=== PATIENT | male | born 1960 | race Caucasian/White ===

== ENCOUNTER 2018-01-01 23:34 | Inpatient (IN) | payer MEDICAID ==
[~2018-01-01] VITALS: Ht 182.9 cm; Wt 100.0 kg
[2018-01-01 23:46] VITALS: BP 178/77; PULSE 83; RESP 14; TEMP 98.1; O2SAT 92
[2018-01-02] VITALS (9 sets, daily range): BP systolic 144–195; BP diastolic 68–86; PULSE 75–97; RESP 16–18; TEMP 97.7–98.6; O2SAT 94–99
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
[2018-01-02] MEDS ORDERED: NALOXONE HCL 0.4 MG/ML AMP IV PUSH ONE ×2 (00:30→03:30)
[2018-01-02 01:02] LABS: AUTOMATED NEUTROPHIL # 7.5 TH/MM3 (1.8-7.7); BASOPHIL # 0.1 TH/MM3 (0-0.2); BASOPHIL % 0.5 % (0.0-2.0); EOSINOPHIL # 0.5 TH/MM3 (0-0.4); EOSINOPHIL % 4.3 % (0.0-4.0); HEMATOCRIT 31.1 % (39.0-51.0); HEMOGLOBIN 10.1 GM/DL (13.0-17.0); LYMPH % 16.4 % (9.0-44.0); LYMPHOCYTE # 1.7 TH/MM3 (1.0-4.8); MEAN CELL VOLUME 81.1 FL (80.0-100.0); MEAN CORPUSCULAR HEMOGLOBIN 26.4 PG (27.0-34.0); MEAN CORPUSCULAR HGB CONC 32.5 % (32.0-36.0); MEAN PLATELET VOLUME 7.5 FL (7.0-11.0); MONO % 8.1 % (0.0-8.0); MONOCYTE # 0.9 TH/MM3 (0-0.9); NEUT % 70.7 % (16.0-70.0); PLATELET COUNT 460 TH/MM3 (150-450); RED BLOOD COUNT 3.83 MIL/MM3 (4.50-5.90); RED CELL DISTRIBUTION WIDTH 16.7 % (11.6-17.2); WHITE BLOOD COUNT 10.6 TH/MM3 (4.0-11.0)
--- NOTE | 2018-01-02 01:03 | RADRPT ---
EXAM DATE/TIME: 01/02/2018 00:28 [facility] COMPARISON: No previous studies available for comparison. INDICATIONS : Short of breath MEDICAL HISTORY : Diabetes mellitus type II. Hypertension SURGICAL HISTORY : None. ENCOUNTER: Initial ACUITY: 1 day PAIN SCORE: 0/10 LOCATION: Bilateral chest FINDINGS: Single AP view of the chest. The lungs are clear. Cardiomediastinal silhouette within normal limits. No evidence of pleural effusion or pneumothorax. CONCLUSION: No acute cardiopulmonary disease identified. Luis Armando Esquivel MD on January 02, 2018 at 0:59 Board Certified Radiologist. This report was verified electronically.
[2018-01-02 01:12] LABS: ALBUMIN 2.7 GM/DL (3.4-5.0); AST (GOT) 20 U/L (15-37); BICARBONATE 26.4 MEQ/L (21.0-32.0); BLOOD UREA NITROGEN 20 MG/DL (7-18); CALCIUM 9.3 MG/DL (8.5-10.1); CHLORIDE 105 MEQ/L (98-107); CREATININE 1.13 MG/DL (0.60-1.30); GLOMERULAR FILTRATION RATE 66 ML/MIN (>89); GLUCOSE,RANDOM 99 MG/DL (74-106); SODIUM (NA) 138 MEQ/L (136-145)
[2018-01-02 01:22] LABS: ALKALINE PHOSPHATASE 105 U/L (45-117); ALT (GPT) 17 U/L (12-78); TOTAL BILIRUBIN ADULT 0.2 MG/DL (0.2-1.0); TOTAL PROTEIN 8.7 GM/DL (6.4-8.2)
[2018-01-02 01:33] LABS: INTERNATIONAL NORMALIZED RATIO 1.3 RATIO; PROTHROMBIN TIME - PATIENT 13.1 SEC (9.8-11.6)
[2018-01-02 01:59] LABS: BACTERIA, URINE RARE /hpf; BILIRUBIN, URINE NEG (NEG); BLOOD, URINE MOD (NEG); GLUCOSE,URINE NEG (NEG); KETONE, URINE NEG (NEG); NITRITE,URINE NEG (NEG); PH, URINE 5.5 (5.0-8.5); URINE COLOR YELLOW (YELLW/STRAW); URINE LEUKOCYTE ESTERASE NEG (NEG)
--- NOTE | 2018-01-02 02:05 | RADRPT ---
EXAM DATE/TIME: 01/02/2018 01:38 [facility] COMPARISON: No previous studies available for comparison. INDICATIONS : Altered mental status. RADIATION DOSE: 54.90 CTDIvol (mGy) MEDICAL HISTORY : None SURGICAL HISTORY : Neck surgery. ENCOUNTER: Initial ACUITY: 1 day PAIN SCALE: 0/10 LOCATION: cranial TECHNIQUE: Multiple contiguous axial images were obtained of the head. Using automated exposure control and adj ustment of the mA and/or kV according to patient size, radiation dose was kept as low as reasonably a chievable to obtain optimal diagnostic quality images. DICOM format image data is available electro nically for review and comparison. FINDINGS: CEREBRUM: Linear artifact in the left upper parietal region. The ventricles are normal for age. No evidence of midline shift, mass lesion, hemorrhage or acute infarction. No extra-axial fluid collections are se en. POSTERIOR FOSSA: The cerebellum and brainstem are intact. The 4th ventricle is midline. The cerebellopontine angle i s unremarkable. EXTRACRANIAL: The visualized portion of the orbits is intact. SKULL: The calvaria is intact. No evidence of skull fracture. CONCLUSION: No acute intracranial findings. Luis Armando Esquivel MD on January 02, 2018 at 2:01 Board Certified Radiologist. This report was verified electronically.
[2018-01-02] MEDS ORDERED: IOHEXOL 350 MG/ML 10 ML VIAL (for RAD DIAG) IVCONTRAST ONE (02:13)
--- NOTE | 2018-01-02 02:41 | RADRPT ---
EXAM DATE/TIME: 01/02/2018 01:43 This report includes an Addendum and supersedes previous reports for this exam. [facility] COMPARISON: No previous studies available for comparison. INDICATIONS : Neck pain. Drainage from surgical site. IV CONTRAST: 50 cc Omnipaque 350 (iohexol) IV RADIATION DOSE: 33.08 CTDIvol (mGy) MEDICAL HISTORY : None SURGICAL HISTORY : Fusion, cervical. ENCOUNTER: Initial ACUITY: 1 day PAIN SCALE: Non-responsive LOCATION: neck TECHNIQUE: Volumetric scanning of the cervical spine was performed. Multiplanar reconstructions in the sagittal , coronal and oblique axial planes were performed. Using automated exposure control and adjustment o f the mA and/or kV according to patient size, radiation dose was kept as low as reasonably achievable to obtain optimal diagnostic quality images. DICOM format image data is available electronically fo r review and comparison. FINDINGS: VERTEBRA: Anterior fusion hardware at C4-5 and C5-6 with evidence of bone bridging between the vertebral bodies at these levels. Posterior laminectomy defects are seen at C4, C5, C6, and C7. Posterior longitudina l rods are seen bilaterally there is evidence of migration posterior migration of the superior aspect of the left-sided gus. The C3, C4, C5, and C6 left-sided posterior screws are not seated in the bone . The screws are posterior to the bone with maximum posterior migration seen at the C3 level measurin g 2 cm. Residual bone lucency and erosion is seen in the posterior elements of C3, C4, C5, and C6 on the left. On the right there is circumferential lucency at the posterior C3 screw measuring up to 4 m m in thickness, indicating loosening. On the right, screws are seen within the C3, C4, C5, and C6 pos terior elements. On the right there is abnormal bone lucency about the pedicle screws at T2 and T3 wi th posterior migration of the screws measuring up to 1.8 cm. On the left there is lucency measuring u p to 2 mm in thickness circumferentially about the T3 pedicle screw. The T1 and T2 pedicle screws on the left remain seated. No evidence of acute fracture ALIGNMENT: No evidence of subluxation. C2-C3: Bilateral facet arthrosis. Central canal diameter within normal limits. Neural foraminal diameter is within normal limits. C3-C4: Postsurgical findings of posterior laminectomy defect. Mild bilateral neural foraminal narrowing. Caleb ateral facet arthrosis. C4-C5: Posterior laminectomy defect. Central canal grossly within normal limits in diameter. Bilateral facet arthrosis. C5-C6: Posterior laminectomy defect. Central canal grossly within normal limits in diameter. Neural frontal diameters within normal image. C6-C7: Posterior laminectomy defect. Central canal diameter grossly within normal limits. Neural foraminal d iameters within normal limits. C7-T1: Posterior laminectomy defect. Central canal diameter grossly within normal limits. Neural foraminal d iameters within normal limits. CONCLUSION: 1. Extensive postsurgical findings of the cervical spine. Anterior and posterior hardware along with laminectomy defects at multiple levels. 2. Evidence of bone fusion at C4-5 and C5-6. 3. Severe loosening and migration of the posterior surgical hardware bilaterally. 4. Defined fluid collections are not seen evaluation of the soft tissues is somewhat limited on nonco ntrast CT. Luis Armando Esquivel MD on January 02, 2018 at 2:27 Board Certified Radiologist. This report was verified electronically. ADDENDUM: Examination was performed with contrast. No defined peripherally enhancing fluid collections. Posteri or soft tissue edema is seen at the surgical levels. Prevertebral soft tissue edema noted at T2, T3, and T4. Luis Armando Esquivel MD on January 02, 2018 at 2:42 Board Certified Radiologist. This report was verified electronically.
--- NOTE | 2018-01-02 02:52 | RADRPT ---
EXAM DATE/TIME: 01/02/2018 01:48 [facility] COMPARISON: CT CERVICAL SPINE W CONTRAST, January 02, 2018, 1:43. INDICATIONS : Back pain. Possible abscess. IV CONTRAST: 50 cc Omnipaque 350 (iohexol) IV RADIATION DOSE: 35.86 CTDIvol (mGy) MEDICAL HISTORY : None SURGICAL HISTORY : Fusion, cervical. ENCOUNTER: Initial ACUITY: 1 day PAIN SCALE: Non-responsive LOCATION: Parasp[facility] TECHNIQUE: Volumetric scanning of the thoracic spine was performed. Multiplanar reconstructions in the sagittal , coronal and oblique axial planes were performed. Using automated exposure control and adjustment o f the mA and/or kV according to patient size, radiation dose was kept as low as reasonably achievable to obtain optimal diagnostic quality images. DICOM format image data is available electronically fo r review and comparison. FINDINGS: Postsurgical findings of the lower cervical and upper thoracic spine. Surgical hardware is fully desc ribed on cervical spine CT report. There is extensive bone erosion and loosening of the posterior enoch dware. Ill-defined posterior soft tissue edema is seen at the levels of surgery. Prevertebral soft ti ssue edema noted at T1-T4. No peripherally enhancing fluid collections identified. Evaluation of the central canal is somewhat limited in the upper thoracic region due to artifact from hardware. A dorsa l cutaneous/subcutaneous defect is noted at this level. No evidence of acute fracture. Small central disc protrusion at T5-6. Mild broad-based disc bulge at T6-7. Small central disc protrusion at T8-9. Mild broad-based disc bulge at T10-11. Central canal lesley meter and neural foraminal diameter is within normal limits at all of these levels. CONCLUSION: 1. Postsurgical findings of the lower cervical and upper thoracic spine with loosening and migration of hardware fully described on cervical spine CT report. 2. Anterior and posterior soft tissue edema. No peripherally enhancing fluid collection seen. Dorsal cutaneous/subcutaneous soft tissue defect noted at the level of surgery. 3. Multiple degenerative findings of the mid to lower thoracic spine. Central canal and neuroforamina l diameters within normal limits at these levels. Luis Armando Esquivel MD on January 02, 2018 at 2:44 Board Certified Radiologist. This report was verified electronically.
[2018-01-02] MEDS ORDERED: cefTRIAXone INJ 1,000 MG in SODIUM CHLORIDE 0.9% INJ 100 ML IV ONE (03:30)
[2018-01-02] MEDS ORDERED: VANCOMYCIN INJ 1,000 MG in SODIUM CHLOR 0.9% 250 ML INJ 250 ML IV ONE (03:30)
[2018-01-02] MEDS ORDERED: Vancomycin Consult Pharmacy 1 EA OTHER SCH (04:45)
[2018-01-02] MEDS ORDERED: BISACODYL 10 MG SUPP RECTAL PRN (04:45)
[2018-01-02] MEDS ORDERED: MAGNESIUM HYDROXIDE SUSP 30 ML CUP PO PRN (04:45)
[2018-01-02] MEDS ORDERED: LACTULOSE SYRUP 20 GM/30 ML CUP PO PRN (04:45)
[2018-01-02] MEDS ORDERED: SODIUM CHLORIDE 0.9% FLUSH 10 ML FLUSH IV FLUSH PRN (04:45)
[2018-01-02] MEDS ORDERED: SENNOSIDES 8.6 MG TAB PO PRN (04:45)
[2018-01-02] MEDS ORDERED: ONDANSETRON HCL 4 MG/2 ML VIAL IVP PRN (04:45)
--- NOTE | 2018-01-02 05:11 | HHI.HP ---
[facility] Primary [facility] Physician Unknown Admission Diagnosis Altered mental status, neck pain, cellulitis, opioid abuse Diagnoses: (1) Encephalopathy Diagnosis: Principal (2) Opioid dependence Diagnosis: Principal (3) Infection of cervical spine Diagnosis: Principal (4) Loosening of hardware in spine Diagnosis: Principal Travel History International Travel<30 Days: No Contact w/Intl Traveler <30 Da: No Traveled to Known Affected Are: No History of Present Illness This is a 57-year-old male with unknown PMH who was dropped off at the ER by his roommate for evaluation of AMS. History is very limited as pt unable to provide history and pt's friend currently unavailable. Per report, friend had relayed that pt has h/o multiple cervical spine surgeries, recently w/ drainage from cervical spine wound. On arrival, pt significantly lethargic, eyes closed , minimally arousable. S/p Narcan 0.4mg in ER w/ significant improvement in alertness, however pt still uncooperative w/ questions. Only answers "what?" when I call his name, tells me he has no pain, otherwise won't talk. BP 178/77 , HR 83, O2 sat 92% RA, Afebrile. WBC normal. Hemoglobin 10.1. Chemistry essentially unremarkable except for BUN 20, GFR 66. LFTs normal. Ammonia 15. INR 1.3. UA negative for UTI. Alcohol negative. CT Head with no acute findings. CXR negative. CT C-spine with extensive postsurgical findings of cervical spine, previous bone fusion, severe loosening and migration of posterior surgical hardware bilaterally, soft tissue edema posteriorly at surgical levels. CT T-spine with postsurgical findings, dorsal cutaneous/ subcutaneous soft tissue defect noted at the level of surgery. S/p Wound/Blood Cultures, in addition to Vanc. Pt given additional dose of Narcan, now seen standing up in room at bedside, however still minimally uncooperative. Review of Systems Except as stated in HPI: all other systems reviewed are Neg ROS: Unable to obtain. Past Family Social History Past Medical History PMH: Unknown Past Surgical History PAST SURGICAL HISTORY: Unknown, Cervical Spine Fusion per imaging Allergies: Coded Allergies: No Known Allergies (Verified Allergy, Unknown, 01/02/18) Family History PAST FAMILY HISTORY: Reviewed. No h/o DM or CAD Social History PAST SOCIAL HISTORY: Negative for alcohol or drugs. Positive for tobacco. Physical Exam Vital Signs Vital Signs Date Time Temp Pulse Resp B/P (MAP) Pulse Ox O2 Delivery O2 Flow Rate FiO2 01/02/18 03:44 84 95 Room Air 01/02/18 03:43 95 Room Air 01/02/18 03:43 95 Room Air 01/02/18 00:06 75 18 144/76 (98) 95 Room Air 01/01/18 23:46 98.1 83 14 178/77 (110) 92 Physical Exam PE: GENERAL: Middle-aged white male in no acute distress. Smells of tobacco. Eyes closed, does not talk, minimally cooperative. HEENT: PERRLA, EOMI. No scleral icterus or conjunctival pallor. No lid lag or facial droop. CARDIOVASCULAR: Regular rate and rhythm. No obvious murmurs to auscultation. No chest tenderness to palpation. RESPIRATORY: No obvious rhonchi or wheezing. Clear to auscultation. Breath sounds equal bilaterally. GASTROINTESTINAL: Abdomen soft, non-tender, nondistended. BS normal. MUSCULOSKELETAL: Extremities without clubbing, cyanosis, or edema. No obvious deformities. Large cervical/thoracic lesion over surgical site, +purulent drainage. NEUROLOGICAL: Lethargic. No focal neurologic deficits. Moving both upper and lower extremities spontaneously. Laboratory Laboratory Tests Test 01/02/18 00:28 01/02/18 01:34 White Blood Count 10.6 Red Blood Count 3.83 Hemoglobin 10.1 Hematocrit 31.1 Mean Corpuscular Volume 81.1 Mean Corpuscular Hemoglobin 26.4 Mean Corpuscular Hemoglobin Concent 32.5 Red Cell Distribution Width 16.7 Platelet Count 460 Mean Platelet Volume 7.5 Neutrophils (%) (Auto) 70.7 Lymphocytes (%) (Auto) 16.4 Monocytes (%) (Auto) 8.1 Eosinophils (%) (Auto) 4.3 Basophils (%) (Auto) 0.5 Neutrophils # (Auto) 7.5 Lymphocytes # (Auto) 1.7 Monocytes # (Auto) 0.9 Eosinophils # (Auto) 0.5 Basophils # (Auto) 0.1 CBC Comment DIFF FINAL Differential Comment Prothrombin Time 13.1 Prothromb Time International Ratio 1.3 Activated Partial Thromboplast Time 51.5 Blood Urea Nitrogen 20 Creatinine 1.13 Random Glucose 99 Total Protein 8.7 Albumin 2.7 Calcium Level 9.3 Alkaline Phosphatase 105 Aspartate Amino Transf (AST/SGOT) 20 Alanine Aminotransferase (ALT/SGPT) 17 Total Bilirubin 0.2 Sodium Level 138 Potassium Level 4.4 Chloride Level 105 Carbon Dioxide Level 26.4 Anion Gap 7 Estimat Glomerular Filtration Rate 66 Lactic Acid Level 0.3 Ammonia 15 Thyroid Stimulating Hormone 3rd Gen 3.370 Ethyl Alcohol Level LESS THAN 3 Urine Color YELLOW Urine Turbidity CLEAR Urine pH 5.5 Urine Specific [place] 1.024 Urine Protein 30 Urine Glucose (UA) NEG Urine Ketones NEG Urine Occult Blood MOD Urine Nitrite NEG Urine Bilirubin NEG Urine Urobilinogen LESS THAN 2.0 Urine Leukocyte Esterase NEG Urine RBC 10 Urine WBC 1 Urine Bacteria RARE Microscopic Urinalysis Comment CATH-CULTURE IND Date/Time Source Procedure Growth Status 01/02/18 00:28 Blood Peripheral Aerobic Blood Culture Pending Received 01/02/18 00:28 Blood Peripheral Anaerobic Blood Culture Pending Received 01/02/18 01:34 Urine Catheterized Urine Urine Culture Pending Received 01/02/18 00:28 Wound Back Gram Stain Pending Received 01/02/18 00:28 Wound Back Wound Culture Pending Received Result Diagram: 01/02/18 0028 01/02/18 0028 Caprini VTE Risk Assessment Caprini VTE Risk Assessment: No/Low Risk (score <= 1) Caprini Risk Assessment Model Point Value = 1 Point Value = 2 Point Value = 3 Point Value = 5 Age 41-60 Minor surgery BMI > 25 kg/m2 Swollen legs Varicose veins or History of unexplained or recurrent spontaneous Oral contraceptives or hormone replacement Sepsis (< 1 month) Serious lung disease, including pneumonia (< 1 month) Abnormal pulmonary function Acute myocardial infarction Congestive heart failure (< 1 month) History of inflammatory bowel disease Medical patient at bed rest Age 61-74 Arthroscopic surgery Major open surgery (> 45 min) Laparoscopic surgery (> 45 min) Malignancy Confined to bed (> 72 hours) Immobilizing plaster cast Central venous access Age >= 75 History of VTE Family history of VTE Factor V Leiden Prothrombin [id number] Lupus anticoagulant Anticardiolipin antibodies Elevated serum homocysteine Heparin-induced thrombocytopenia Other congenital or acquired thrombophilia Stroke (< 1 month) Elective arthroplasty Hip, pelvis, or leg fracture Acute spinal cord injury (< 1 month) Prophylaxis Regimen Total Risk Factor Score Risk Level Prophylaxis Regimen 0-1 Low Early ambulation 2 Moderate Order ONE of the following: *Sequential Compression Device (SCD) *Heparin 5000 units SQ BID 3-4 Higher Order ONE of the following medications: *Heparin 5000 units SQ TID *Enoxaparin/Lovenox 40 mg SQ daily (WT < 150 kg, CrCl > 30 mL/min) *Enoxaparin/Lovenox 30 mg SQ daily (WT < 150 kg, CrCl > 10-29 mL/min) *Enoxaparin/Lovenox 30 mg SQ BID (WT < 150 kg, CrCl > 30 mL/min) AND/OR *Sequential Compression Device (SCD) 5 or more Highest Order ONE of the following medications: *Heparin 5000 units SQ TID (Preferred with Epidurals) *Enoxaparin/Lovenox 40 mg SQ daily (WT < 150 kg, CrCl > 30 mL/min) *Enoxaparin/Lovenox 30 mg SQ daily (WT < 150 kg, CrCl > 10-29 mL/min) *Enoxaparin/Lovenox 30 mg SQ BID (WT < 150 kg, CrCl > 30 mL/min) AND *Sequential Compression Device (SCD) Assessment and Plan Problem List: (1) Encephalopathy ICD Code: G93.40 - Encephalopathy, unspecified (2) Opioid dependence ICD Code: F11.20 - Opioid dependence, uncomplicated (3) Loosening of hardware in spine ICD Code: T84.498A - Other mechanical complication of other internal orthopedic devices, implants and grafts, initial encounter (4) Infection of cervical spine ICD Code: M46.22 - Osteomyelitis of vertebra, cervical region Assessment and Plan A/P: 1. Encephalopathy: unclear etiology, unfortunately limited history, CT Head w / no acute findings, images reviewed by me. Possibly related to infection/ narcotics, s/p Narcan x2 in ER w/ some improvement. Hold analgesics. Neuro Checks. 2. Opioid Dependence: presumed. Check Urine Drug Screen. S/p Narcan x2 w/ transient improvement in mental status, however remains uncooperative/minimally conversive. Maintaining airway. Neuro Cheks. 3. C-Spine Infection: h/o cervical spine surgery, large wound at surgical site w/ purulent drainage, s/p Wound Culture, Blood Culture and Vanc IV. Afebrile, no leukocytosis, however CT C-Spine w/ soft tissue edema, concerning for infection. Continue w/ Vanc/Cefepime, follow up cultures, consult ID for further evaluation/recommendations. 4. Loosening of Hardware: CT C/T-Spine w/ severe loosening and migration of posterior surgical hardware bilaterally, images reviewed by me. Unclear when/ where surgical intervention occurred. Consult Neurosurgery for further evaluation/intervention. 5. DVT Prophylaxis: SCD/Teds 6. Social work for d/c planning as needed 7. Case discussed w/ ER physician at length, labs/records/imaging reviewed by me Physician Certification 2 Midnight Certification Type: Admission for Inpatient Services Order for Inpatient Services The services are ordered in accordance with Medicare regulations or non- Medicare payer requirements, as applicable. In the case of services not specified as inpatient-only, they are appropriately provided as inpatient services in accordance with the 2-midnight benchmark. Estimated LOS (days): 2 days is the estimated time the patient will need to remain in the hospital, assuming treatment plan goals are met and no additional complications. Post-Hospital Plan: Not yet determined Aranza Rodriguez MD Jan 02, 2018 05:11
[2018-01-02] MEDS: SODIUM CHLOR 0.9% 1000 ML INJ 1,000 ML IV SCH ×2 (07:18→15:23)
[2018-01-02] MEDS: SODIUM CHLORIDE 0.9% FLUSH 10 ML FLUSH IV FLUSH SCH ×2 (09:00→21:00)
[2018-01-02] MEDS: DOCUSATE SODIUM 50 MG/SENNA 8.6 MG TAB PO SCH ×2 (09:00→20:00)
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
--- NOTE | 2018-01-02 12:30 | RADRPT ---
EXAM DATE/TIME: 01/02/2018 11:50 [facility] COMPARISON: CT CERVICAL SPINE W CONTRAST, January 02, 2018, 1:43. CT THORACIC SPINE W CONTRAST, January 02, 2018, 1: 48. INDICATIONS : Drainage at cervical and thoracic spinal area. MEDICAL HISTORY : Drainage at cervical and thoracic spinal area. SURGICAL HISTORY : Multiple cervical fusions, most recement June 2017. ENCOUNTER: Initial ACUITY: 1 day PAIN SCORE: Nonresponsive. LOCATION: Cervical and thoracic spine. AREA EVALUATED: Cervical and thoracic back. FINDINGS: MASSES: None. FLUID COLLECTIONS: There is a linear area of discontinuity adjacent to the cervical thoracic junction midline with conne ction to the overlying skin consistent with an area of sinus tract formation. No definitive fluid col lection is identified. This corresponds with the area of distortion identified on CT cervical spine i mage 3 of series 4. OTHER: Negative. CONCLUSION: Ultrasound findings concerning for an area of sinus tract formation at the cervical thoracic junction . No definitive fluid collection is identified on either ultrasound or prior CT Romi Moody MD on January 02, 2018 at 12:23 Board Certified Radiologist. This report was verified electronically.
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
--- NOTE | 2018-01-02 16:02 | HHI.PR ---
Subjective Remarks Follow-up encephalopathy, cervical spine infection. The patient appears uncomfortable. He denies pain when asked. He states that he does not know where he had his surgery done. Objective Vitals Vital Signs Date Time Temp Pulse Resp B/P (MAP) Pulse Ox O2 Delivery O2 Flow Rate FiO2 01/02/18 12:28 98.3 80 18 161/70 (100) 95 01/02/18 09:00 98.2 80 16 195/86 (122) 96 01/02/18 07:00 75 18 164/86 (112) 99 Room Air 01/02/18 03:44 84 95 Room Air 01/02/18 03:43 95 Room Air 01/02/18 03:43 95 Room Air 01/02/18 00:06 75 18 144/76 (98) 95 Room Air 01/01/18 23:46 98.1 83 14 178/77 (110) 92 Result Diagram: 01/02/18 0028 01/02/18 0028 Imaging Last Impressions Chest X-Ray 01/02/18 0019 Signed Impressions: Service Date/Time: Tuesday, January 02, 2018 00:28 - CONCLUSION: No acute cardiopulmonary disease identified. Luis Armando Esquivel MD Thoracic Spine CT 01/02/18 0000 Signed Impressions: Service Date/Time: Tuesday, January 02, 2018 01:48 - CONCLUSION: 1. Postsurgical findings of the lower cervical and upper thoracic spine with loosening and migration of hardware fully described on cervical spine CT report. 2. Anterior and posterior soft tissue edema. No peripherally enhancing fluid collection seen. Dorsal cutaneous/subcutaneous soft tissue defect noted at the level of surgery. 3. Multiple degenerative findings of the mid to lower thoracic spine. Central canal and neuroforaminal diameters within normal limits at these levels. Luis Armando Esquivel MD Neck Ultrasound 01/02/18 0000 Signed Impressions: Service Date/Time: Tuesday, January 02, 2018 11:50 - CONCLUSION: Ultrasound findings concerning for an area of sinus tract formation at the cervical thoracic junction. No definitive fluid collection is identified on either ultrasound or prior CT Romi Moody MD Head CT 01/02/18 0000 Signed Impressions: Service Date/Time: Tuesday, January 02, 2018 01:38 - CONCLUSION: No acute intracranial findings. Luis Armando Esquivel MD Cervical Spine CT 01/02/18 0000 Signed Impressions: Service Date/Time: Tuesday, January 02, 2018 01:43 - CONCLUSION: 1. Extensive postsurgical findings of the cervical spine. Anterior and posterior hardware along with laminectomy defects at multiple levels. 2. Evidence of bone fusion at C4-5 and C5-6. 3. Severe loosening and migration of the posterior surgical hardware bilaterally. 4. Defined fluid collections are not seen evaluation of the soft tissues is somewhat limited on noncontrast CT. Luis Armando Esquivel MD ADDENDUM: Examination was performed with contrast. No defined peripherally enhancing fluid collections. Posterior soft tissue edema is seen at the surgical levels. Prevertebral soft tissue edema noted at T2, T3, and T4. Luis Armando Esquivel MD Objective Remarks General: No acute distress. Appears older than stated age. Heart: Regular rate and rhythm. No murmur. Lungs: Clear to auscultation bilaterally. No wheezes, rales, or rhonchi. Breathing is nonlabored. Abdomen: Soft, nontender, nondistended. Extremities: No lower extremity edema. Psych: Alert and oriented. Neuro: No focal deficits noted. Moving both upper and lower extremity spontaneously. Skin: Large lesion overlying the cervical/thoracic spine with erythema. Procedures None Urinary Catheter: No Vascular Central Line Catheter: No A/P Problem List: (1) Encephalopathy ICD Code: G93.40 - Encephalopathy, unspecified (2) Opioid dependence ICD Code: F11.20 - Opioid dependence, uncomplicated (3) Loosening of hardware in spine ICD Code: T84.498A - Other mechanical complication of other internal orthopedic devices, implants and grafts, initial encounter (4) Infection of cervical spine ICD Code: M46.22 - Osteomyelitis of vertebra, cervical region Assessment and Plan 1. Encephalopathy: Uncertain etiology. Urine drug screen positive for cocaine and opiates. Altered mental status possibly related to infection, narcotics. Continue neuro checks. 2. Opioid dependence, presumed: Urine drug screen positive for opiates. Status post Narcan 2 with transient improvement in mental status. He is maintaining his airway and has become more alert during the day. 3. Cervical spine infection: Patient has history of cervical spine surgery and has a large wound at the surgical site which has had purulent drainage. Wound culture and blood cultures are pending. Continue IV vancomycin. Continue cefepime. Appreciate infectious disease recommendations. Lumbar puncture ordered. 4. Loosening of cervical spine hardware: Appreciate neurosurgery recommendations. Neurosurgery is recommending that the patient be transferred back to the facility where he had the surgery, and if this cannot be determined , then he would likely need to be transferred to a tertiary care center. 5. DVT prophylaxis: FRAN Welch. Salomon Crowley MD Jan 02, 2018 16:02
[2018-01-02] MEDS ORDERED: VANCOMYCIN INJ 1,500 MG in SODIUM CHLORID 0.9% 500 ML INJ 500 ML IV SCH (18:00)
[2018-01-03] MEDS: SODIUM CHLOR 0.9% 1000 ML INJ 1,000 ML IV SCH ×2 (00:31→13:05)
[2018-01-03 03:22] VITALS: PULSE 83
[2018-01-03 07:40] VITALS: BP 145/68; PULSE 78; RESP 18; TEMP 97.9; O2SAT 96
[2018-01-03 07:43] LABS: BASOPHIL # 0.1 TH/MM3 (0-0.2); BASOPHIL % 0.5 % (0.0-2.0); EOSINOPHIL # 0.2 TH/MM3 (0-0.4); EOSINOPHIL % 1.4 % (0.0-4.0); HEMATOCRIT 29.9 % (39.0-51.0); HEMOGLOBIN 9.9 GM/DL (13.0-17.0); LYMPH % 11.9 % (9.0-44.0); LYMPHOCYTE # 1.5 TH/MM3 (1.0-4.8); MEAN CELL VOLUME 80.4 FL (80.0-100.0); MEAN CORPUSCULAR HEMOGLOBIN 26.5 PG (27.0-34.0); MEAN CORPUSCULAR HGB CONC 32.9 % (32.0-36.0); MEAN PLATELET VOLUME 7.5 FL (7.0-11.0); MONO % 7.3 % (0.0-8.0); MONOCYTE # 0.9 TH/MM3 (0-0.9); NEUT % 78.9 % (16.0-70.0); PLATELET COUNT 447 TH/MM3 (150-450); RED BLOOD COUNT 3.72 MIL/MM3 (4.50-5.90); RED CELL DISTRIBUTION WIDTH 16.4 % (11.6-17.2); WHITE BLOOD COUNT 12.6 TH/MM3 (4.0-11.0)
[2018-01-03 07:59] LABS: ALBUMIN 2.9 GM/DL (3.4-5.0); AST (GOT) 16 U/L (15-37); BICARBONATE 24.6 MEQ/L (21.0-32.0); BLOOD UREA NITROGEN 11 MG/DL (7-18); CALCIUM 9.4 MG/DL (8.5-10.1); CHLORIDE 105 MEQ/L (98-107); CREATININE 0.97 MG/DL (0.60-1.30); GLOMERULAR FILTRATION RATE 79 ML/MIN (>89); GLUCOSE,RANDOM 94 MG/DL (74-106); SODIUM (NA) 138 MEQ/L (136-145)
[2018-01-03 08:01] LABS: ALT (GPT) 15 U/L (12-78)
[2018-01-03 08:03] LABS: ALKALINE PHOSPHATASE 104 U/L (45-117); TOTAL BILIRUBIN ADULT 0.4 MG/DL (0.2-1.0); TOTAL PROTEIN 8.8 GM/DL (6.4-8.2)
[2018-01-03] MEDS: DOCUSATE SODIUM 50 MG/SENNA 8.6 MG TAB PO SCH ×2 (08:57→21:00)
[2018-01-03] MEDS: SODIUM CHLORIDE 0.9% FLUSH 10 ML FLUSH IV FLUSH SCH ×2 (09:02→21:00)
--- NOTE | 2018-01-03 09:10 | HHI.PR ---
Subjective Remarks Follow-up encephalopathy, cervical spine infection. The patient is much more willing and able to answer questions today. He states that he had 11 spinal surgeries done at [facility]. He is reporting mild pain under both arms today. No chest pain or dyspnea. Objective Vitals Vital Signs Date Time Temp Pulse Resp B/P (MAP) Pulse Ox O2 Delivery O2 Flow Rate FiO2 01/03/18 07:40 97.9 78 18 145/68 (93) 96 01/03/18 03:22 83 01/02/18 20:00 97.7 83 18 155/68 (97) 94 01/02/18 16:38 98.6 85 18 168/77 (107) 94 01/02/18 12:28 98.3 80 18 161/70 (100) 95 I/O 01/02/18 01/02/18 01/02/18 01/03/18 01/03/18 01/03/18 07:00 15:00 23:00 07:00 15:00 23:00 # Voids 2 Result Diagram: 01/03/18 0605 01/03/18 0605 Imaging Last Impressions Chest X-Ray 01/02/18 0019 Signed Impressions: Service Date/Time: Tuesday, January 02, 2018 00:28 - CONCLUSION: No acute cardiopulmonary disease identified. Luis Armando Esquivel MD Thoracic Spine CT 01/02/18 0000 Signed Impressions: Service Date/Time: Tuesday, January 02, 2018 01:48 - CONCLUSION: 1. Postsurgical findings of the lower cervical and upper thoracic spine with loosening and migration of hardware fully described on cervical spine CT report. 2. Anterior and posterior soft tissue edema. No peripherally enhancing fluid collection seen. Dorsal cutaneous/subcutaneous soft tissue defect noted at the level of surgery. 3. Multiple degenerative findings of the mid to lower thoracic spine. Central canal and neuroforaminal diameters within normal limits at these levels. Luis Armando Esquivel MD Neck Ultrasound 01/02/18 0000 Signed Impressions: Service Date/Time: Tuesday, January 02, 2018 11:50 - CONCLUSION: Ultrasound findings concerning for an area of sinus tract formation at the cervical thoracic junction. No definitive fluid collection is identified on either ultrasound or prior CT Romi Moody MD Head CT 01/02/18 0000 Signed Impressions: Service Date/Time: Tuesday, January 02, 2018 01:38 - CONCLUSION: No acute intracranial findings. Luis Armando Esquivel MD Cervical Spine CT 01/02/18 0000 Signed Impressions: Service Date/Time: Tuesday, January 02, 2018 01:43 - CONCLUSION: 1. Extensive postsurgical findings of the cervical spine. Anterior and posterior hardware along with laminectomy defects at multiple levels. 2. Evidence of bone fusion at C4-5 and C5-6. 3. Severe loosening and migration of the posterior surgical hardware bilaterally. 4. Defined fluid collections are not seen evaluation of the soft tissues is somewhat limited on noncontrast CT. Luis Armando Esquivel MD ADDENDUM: Examination was performed with contrast. No defined peripherally enhancing fluid collections. Posterior soft tissue edema is seen at the surgical levels. Prevertebral soft tissue edema noted at T2, T3, and T4. Luis Armando Esquivel MD Objective Remarks General: No acute distress. Appears older than stated age. Heart: Regular rate and rhythm. No murmur. Lungs: Clear to auscultation bilaterally. No wheezes, rales, or rhonchi. Breathing is nonlabored. Abdomen: Soft, nontender, nondistended. Extremities: No lower extremity edema. Psych: Alert and oriented. Neuro: No focal deficits noted. Moving both upper and lower extremity spontaneously. Skin: Large lesion overlying the cervical/thoracic spine with erythema. Procedures None Urinary Catheter: No Vascular Central Line Catheter: No A/P Problem List: (1) Encephalopathy ICD Code: G93.40 - Encephalopathy, unspecified (2) Opioid dependence ICD Code: F11.20 - Opioid dependence, uncomplicated (3) Loosening of hardware in spine ICD Code: T84.498A - Other mechanical complication of other internal orthopedic devices, implants and grafts, initial encounter (4) Infection of cervical spine ICD Code: M46.22 - Osteomyelitis of vertebra, cervical region Assessment and Plan 1. Encephalopathy: Mental status improving. Urine drug screen positive for cocaine and opiates. Altered mental status possibly related to infection, narcotics. Continue neuro checks. 2. Opioid dependence, presumed: Urine drug screen positive for opiates. Status post Narcan 2 with transient improvement in mental status. He is alert and oriented at this time. 3. Cervical spine infection: Patient has history of cervical spine surgery and has a large wound at the surgical site which has had purulent drainage. Wound culture and blood cultures are pending. Continue IV vancomycin. Continue cefepime. Appreciate infectious disease recommendations. Lumbar puncture ordered. 4. Loosening of cervical spine hardware: Appreciate neurosurgery recommendations. Neurosurgery is recommending that the patient be transferred back to the facility where he had the surgery ([facility]) or he will need to be transferred to a tertiary care center. 5. DVT prophylaxis: FRAN Welch. Discharge Planning Per neurosurgery, patient will need to be transferred either to the facility where he had his surgeries ([facility] per the patient) or transferred to a tertiary care center. Salomon Crowley MD Jan 03, 2018 09:10
[2018-01-03 11:41] VITALS: BP 176/83; PULSE 70; RESP 18; TEMP 98; O2SAT 97
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
[2018-01-03] MEDS ORDERED: GABA600T PO (12:30)
[2018-01-03] MEDS ORDERED: RANI150T PO (12:34)
[2018-01-03] MEDS ORDERED: GLYB5TAB3 PO (12:34)
[2018-01-03] MEDS ORDERED: NABU1TAB33 PO (12:34)
[2018-01-03] MEDS ORDERED: BACL10TA PO (12:34)
[2018-01-03] MEDS ORDERED: LEVO750T3 PO (12:34)
[2018-01-03] MEDS ORDERED: HYDR-3799 PO (12:34)
[2018-01-03] MEDS ORDERED: CYCL10TA PO (12:34)
[2018-01-03] MEDS: ACETAMINOPHEN 325 MG TAB PO PRN ×2 (13:05→18:29)
--- NOTE | 2018-01-03 13:07 | ECHRPT ---
Indication: CONCLUSIONS The transthoracic study is normal by two-dimensional, color flow imaging and Doppler interrogation. BP: / HR: Rhythm: MEASUREMENTS (Male / Female) Normal Values Technical Quality: 2D ECHO LV Diastolic Diameter PLAX 5.2 cm 4.2 - 5.9 / 3.9 - 5.3 cm LV Systolic Diameter PLAX 3.6 cm IVS Diastolic Thickness 1.0 cm 0.6 - 1.0 / 0.6 - 0.9 cm LVPW Diastolic Thickness 0.9 cm 0.6 - 1.0 / 0.6 - 0.9 cm LV Relative Wall Thickness 0.4 RV Internal Dim ED PLAX 2.2 cm LA Systolic Diameter LX 3.2 cm 3.0 - 4.0 / 2.7 - 3.8 cm M-MODE Aortic Root Diameter MM 3.3 cm AV Cusp Separation MM 2.2 cm DOPPLER Mitral E Point Velocity 112.0 cm/s Mitral A Point Velocity 98.7 cm/s Mitral E to A Ratio 1.1 TR Peak Velocity 145.0 cm/s TR Peak Gradient 8.4 mmHg Right Atrial Pressure 5.0 mmHg Pulmonary Artery Systolic Pressu 13.4 mmHg Right Ventricular Systolic Press 13.4 mmHg FINDINGS LEFT VENTRICLE Normal left ventricular size and wall thickness. The left ventricular systolic function is normal wi th an estimated ejection fraction in the range of 60-65%. Left ventricular diastolic function parameters a re normal. RIGHT VENTRICLE Normal right ventricular size and systolic function. LEFT ATRIUM The left atrial size is normal. RIGHT ATRIUM The right atrial size is normal. ATRIAL SEPTUM Normal atrial septal thickness without atrial level shunting by limited color doppler interrogation. AORTA The aortic root and proximal ascending aorta are normal in size on limited imaging. MITRAL VALVE Structurally normal mitral valve. No mitral valve stenosis or regurgitation. AORTIC VALVE Trileaflet aortic valve. No aortic valve stenosis or regurgitation. TRICUSPID VALVE There is trace tricuspid valve regurgitation. PULMONARY VALVE No pulmonary valve regurgitation or stenosis. VESSELS The inferior vena cava is normal in size. PERICARDIUM No pericardial effusion. Baltazar Rondon MD, FACC (Electronically Signed) Final Date:03 January 2018 13:06
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
[2018-01-03 16:00] VITALS: BP 165/72; PULSE 70; RESP 18; TEMP 98.5; O2SAT 96
[2018-01-03] MEDS ORDERED: PHARMACY ORDERED LAB ONE (17:45)
--- NOTE | 2018-01-03 19:13 | HHI.DCPOC ---
Discharge Care Plan Diagnosis: (1) Infection of cervical spine (2) Loosening of hardware in spine (3) Encephalopathy (4) Opioid abuse (5) Cellulitis (6) Altered mental status (7) Neck pain (8) Opioid dependence Goals to Promote Your Health * To prevent worsening of your condition and complications * To maintain your health at the optimal level Directions to Meet Your Goals Take your medications as prescribed Follow your dietary instruction Follow activity as directed Keep your appointments as scheduled Take your immunizations and boosters as scheduled If your symptoms worsen call your PCP, if no PCP go to Urgent Care Center or Emergency Room Smoking is Dangerous to Your Health. Avoid second hand smoke Call the 24-hour hour crisis hotline for domestic abuse at Salomon Crowley MD Jan 03, 2018 19:13
[2018-01-03 20:52] VITALS: BP 142/65; PULSE 67; RESP 18; TEMP 97.9; O2SAT 96
== END 2018-01-04 00:50 | disposition short-term general hospital (02) | DRG 559 ==
LOC: NEPE 23:34 → NEDA 01-02 04:28 → NEDH 01-02 08:27 → N05A 01-02 15:31
PROVIDERS: ADMIT Family Medicine; ATTEND Family Medicine
DX: T84.63XA Infection and inflammatory reaction due to internal fixation device of spine, initial encounter (principal); G93.40 Encephalopathy, unspecified; M46.22 Osteomyelitis of vertebra, cervical region; F11.20 Opioid dependence, uncomplicated; L03.221 Cellulitis of neck; T84.038A Mechanical loosening of other internal prosthetic joint, initial encounter; M54.2 Cervicalgia; Z98.1 Arthrodesis status; F32.9 Major depressive disorder, single episode, unspecified; R60.0 Localized edema; F14.90 Cocaine use, unspecified, uncomplicated; I10 Essential (primary) hypertension; Z86.14 Personal history of Methicillin resistant Staphylococcus aureus infection; Z72.0 Tobacco use
CPT/HCPCS: 70450; 71045; 72126; 72129; 76536; 80053; 80074; 80307; 81001; 82140; 83605; 84443; 85025; 85610; 85730; 86140; 86703; 87040; 87070; 87077; 87086; 87186; 87205; 93306; 96365; 96375; 96376; 99285; J0696; J2310; J3370; J7030; J7050; L0150; Q9967